=== PATIENT | female | born 1950 | race Caucasian/White ===

== ENCOUNTER → 2024-01-10 10:56 | Outpatient (REF) | payer OTHER, SELFPAY | LOC: RAD 10:56 | PROVIDERS: ATTENDING PHYSICIAN Specialist; FAMILY PHYSICIAN Physician Assistant Medical | DX: N18.1 Chronic kidney disease, stage 1 (principal) | CPT/HCPCS: 76770 ==

== ENCOUNTER → 2024-02-27 11:02 | Outpatient (REF) | payer OTHER, SELFPAY ==
--- NOTE | 2024-02-27 12:10 | CARDSERVDEF ---
Echocardiogram with Definity completed after protocol screening completed. Allergies verified.
Patent IV site: ___left FA__
IV site flushed with 0.9% NaCl pre and post administration.
Diluted bolus method utilized to enhance visualization of ventricular dawn.
Total volume given: __7.0__ mL
Patient tolerated all procedures well without complications.
#22 saran placed left FA. Definity given. INT d/c'd. pressure held. No bleeding noted.
== END ==
LOC: RCS 11:02
PROVIDERS: ATTENDING PHYSICIAN Internal Medicine Cardiovascular Disease; FAMILY PHYSICIAN Nurse Practitioner Family
DX: R06.02 Shortness of breath (principal)
CPT/HCPCS: 93306; Q9957

== ENCOUNTER → 2024-03-05 11:10 | Outpatient (REF) | payer OTHER, SELFPAY | LOC: DHCBC/DCA 11:10 | PROVIDERS: ATTENDING PHYSICIAN Internal Medicine Cardiovascular Disease; FAMILY PHYSICIAN Physician Assistant Medical | DX: R06.02 Shortness of breath (principal) | CPT/HCPCS: 78452; 93017; A9500; J2785 ==

== ENCOUNTER → 2024-05-10 06:25 | Day surgery (SDC) | payer OTHER, SELFPAY | LOC: GI 06:25 | PROVIDERS: ATTENDING PHYSICIAN Internal Medicine | DX: Z12.11 Encounter for screening for malignant neoplasm of colon (principal); K57.30 Diverticulosis of large intestine without perforation or abscess without bleeding; D12.8 Benign neoplasm of rectum; K64.8 Other hemorrhoids; Z80.0 Family history of malignant neoplasm of digestive organs; Z83.79 Family history of other diseases of the digestive system; Z98.0 Intestinal bypass and anastomosis status | CPT/HCPCS: 45380; 88305 ==

== ENCOUNTER 2024-09-11 06:25 | Day surgery (SDC) | payer OTHER, SELFPAY | END 2024-09-11 10:37 | disposition home or self-care (01) | LOC: GI 06:25 | PROVIDERS: ATTENDING PHYSICIAN Internal Medicine | DX: K44.9 Diaphragmatic hernia without obstruction or gangrene (principal); K31.7 Polyp of stomach and duodenum; K31.89 Other diseases of stomach and duodenum; C7A.092 Malignant carcinoid tumor of the stomach; K31.A0 Gastric intestinal metaplasia, unspecified; K29.50 Unspecified chronic gastritis without bleeding | CPT/HCPCS: 43251; 88305; 88342 ==

== ENCOUNTER 2024-11-29 06:20 | Day surgery (SDC) | payer OTHER, SELFPAY ==
[2024-11-29 07:35] VITALS: BMI 33.2
[2024-11-29 07:36] VITALS: BP 146/56
[2024-11-29 09:15] VITALS: BP 109/49
[2024-11-29 09:31] VITALS: BP 129/116
[2024-11-29 09:45] VITALS: BP 104/44
== END 2024-11-29 09:20 | disposition home or self-care (01) ==
LOC: GI 06:20
PROVIDERS: ATTENDING PHYSICIAN Internal Medicine Gastroenterology
DX: K31.7 Polyp of stomach and duodenum (principal); K31.89 Other diseases of stomach and duodenum; K86.9 Disease of pancreas, unspecified; K80.20 Calculus of gallbladder without cholecystitis without obstruction
CPT/HCPCS: 43259

== ENCOUNTER → 2024-12-18 11:36 | Outpatient (REF) | payer OTHER, SELFPAY | LOC: HWRAD 11:36 | PROVIDERS: ATTENDING PHYSICIAN Nurse Practitioner Family | DX: Z13.820 Encounter for screening for osteoporosis (principal) | CPT/HCPCS: 77080 ==